=== PATIENT | female | born 1990 | race Caucasian/White ===

== ENCOUNTER → 2017-02-26 | Outpatient (REF) ==
[2017-02-26 10:56] LABS: LDL CHOLESTEROL 75 mg/dl
== END ==
DX: Z02.9 Encounter for administrative examinations, unspecified (principal)

== ENCOUNTER → 2018-04-04 | Outpatient (REF) ==
[2018-04-04 11:40] LABS: LDL CHOLESTEROL 99 mg/dl
== END ==
DX: Z02.9 Encounter for administrative examinations, unspecified (principal)